=== PATIENT | female | born 1950 | race Hispanic/Latino ===

== ENCOUNTER 2016-10-13 12:38 | Outpatient (RCR) | payer MEDICAID, MEDICARE, OTHER ==
[2016-10-13 13:28] LABS: BASOPHILS % (AUTO) 1 % (0-10); EOSINOPHILS # (AUTO) 0.2 10^3/uL (0.0-0.3); EOSINOPHILS % (AUTO) 3 % (0-10); LYMPHOCYTES # (AUTO) 2.6 X 10^3 (1.0-4.0); LYMPHOCYTES % (AUTO) 42 % (12-44); MEAN CORPUSCULAR HEMOGLOBIN 32 PG (25-34); MEAN CORPUSCULAR HGB CONC 35 G/DL (32-36); MEAN CORPUSCULAR VOLUME 90 FL (80-99); MEAN PLATELET VOLUME 13.1 FL (7.4-10.4); MONOCYTES # (AUTO) 0.6 X 10^3 (0.0-1.0); MONOCYTES % (AUTO) 9 % (0-12); NEUTROPHILS # (AUTO) 2.9 X 10^3 (1.8-7.8); NEUTROPHILS % (AUTO) 45 % (42-75); PLATELET COUNT 132 10^3/uL (130-400); RED BLOOD COUNT 4.54 10^6/uL (4.35-5.85); RED CELL DISTRIBUTION WIDTH 12.5 % (10.0-14.5); WHITE BLOOD COUNT 6.3 10^3/uL (4.3-11.0)
[2016-10-13 13:47] LABS: ALANINE AMINOTRANSFERASE 26 U/L (0-55); ALBUMIN 4.2 G/DL (3.2-4.5); ANION GAP 9 MMOL/L (5-14); ASPARTATE AMINO TRANSFERASE 24 U/L (5-34); BILIRUBIN,TOTAL 0.5 MG/DL (0.1-1.0); BLOOD UREA NITROGEN 13 MG/DL (7-18); BUN/CREATININE RATIO 19; CALCIUM 9.1 MG/DL (8.5-10.1); CARBON DIOXIDE 24 MMOL/L (21-32); CHLORIDE 105 MMOL/L (98-107); CREATININE SERUM 0.67 MG/DL (0.60-1.30); GFR ESTIMATED > 60; GLUCOSE 103 MG/DL (70-105); POTASSIUM 4.1 MMOL/L (3.6-5.0); SODIUM 138 MMOL/L (135-145); TOTAL PROTEIN 6.8 G/DL (6.4-8.2)
== END 2017-01-11 | disposition home or self-care (01) ==
LOC: ONC 12:38
PROVIDERS: ATTEND Internal Medicine Hematology & Oncology
DX: Z09 Encounter for follow-up examination after completed treatment for conditions other than malignant neoplasm (principal); Z86.2 Personal history of diseases of the blood and blood-forming organs and certain disorders involving the immune mechanism; E11.9 Type 2 diabetes mellitus without complications; E03.9 Hypothyroidism, unspecified; I10 Essential (primary) hypertension; E78.1 Pure hyperglyceridemia; Z79.84 Long term (current) use of oral hypoglycemic drugs
CPT/HCPCS: 36415; 80053; 85025; 99214

== ENCOUNTER → 2017-01-26 | Outpatient (CLI) | payer MEDICARE, MEDICAID ==
--- NOTE | 2017-01-29 09:15 | Diagnostic Imaging Report ---
Bilateral screening mammogram The current study was also evaluated with a Computer Aided Detection (CAD) system. INDICATION: Screening. No current complaints stated on the questionnaire. COMPARISON: 01/15/15. FINDINGS: The breasts are composed of heterogeneously dense parenchyma which may decrease mammographic sensitivity. Biopsy clip in the outer aspect of the right breast and central posterior aspect of the left breast is seen. Occasional benign-appearing calcifications are noted. Allowing for technique and positional differences, no suspicious change is seen. IMPRESSION: Dense breasts with no definite change. ACR BI-RADS Category 2: Benign findings. Result letter will be mailed to the patient. Note: At least 10% of breast cancer is not imaged by mammography. Dictated by: Dictated on workstation # [id number]
== END ==
LOC: RAD 10:07
PROVIDERS: ATTEND Family Medicine
DX: Z12.31 Encounter for screening mammogram for malignant neoplasm of breast (principal)
CPT/HCPCS: 77067

== ENCOUNTER 2017-05-23 13:11 | Outpatient (RCR) | payer MEDICARE, MEDICAID ==
[2017-05-23 14:09] LABS: BASOPHILS # (AUTO) 0.1 10^3/uL (0.0-0.1); BASOPHILS % (AUTO) 1 % (0-10); EOSINOPHILS # (AUTO) 0.2 10^3/uL (0.0-0.3); EOSINOPHILS % (AUTO) 3 % (0-10); LYMPHOCYTES # (AUTO) 2.8 X 10^3 (1.0-4.0); LYMPHOCYTES % (AUTO) 39 % (12-44); MEAN CORPUSCULAR HEMOGLOBIN 31 PG (25-34); MEAN CORPUSCULAR HGB CONC 35 G/DL (32-36); MEAN CORPUSCULAR VOLUME 90 FL (80-99); MEAN PLATELET VOLUME 12.4 FL (7.4-10.4); MONOCYTES # (AUTO) 0.5 X 10^3 (0.0-1.0); MONOCYTES % (AUTO) 8 % (0-12); NEUTROPHILS # (AUTO) 3.6 X 10^3 (1.8-7.8); NEUTROPHILS % (AUTO) 50 % (42-75); PLATELET COUNT 142 10^3/uL (130-400); RED BLOOD COUNT 4.65 10^6/uL (4.35-5.85); RED CELL DISTRIBUTION WIDTH 13.6 % (10.0-14.5); WHITE BLOOD COUNT 7.2 10^3/uL (4.3-11.0)
[2017-05-23 15:03] LABS: ALANINE AMINOTRANSFERASE 22 U/L (0-55); ALBUMIN 4.3 GM/DL (3.2-4.5); ANION GAP 7 MMOL/L (5-14); ASPARTATE AMINO TRANSFERASE 23 U/L (5-34); BILIRUBIN,TOTAL 0.4 MG/DL (0.1-1.0); BLOOD UREA NITROGEN 9 MG/DL (7-18); BUN/CREATININE RATIO 14; CALCIUM 9.5 MG/DL (8.5-10.1); CARBON DIOXIDE 27 MMOL/L (21-32); CHLORIDE 107 MMOL/L (98-107); CREATININE SERUM 0.63 MG/DL (0.60-1.30); GFR ESTIMATED > 60; GLUCOSE 115 MG/DL (70-105); POTASSIUM 4.1 MMOL/L (3.6-5.0); SODIUM 141 MMOL/L (135-145); TOTAL PROTEIN 7.1 GM/DL (6.4-8.2)
[2017-06-26] MEDS ORDERED: SIMV20TA3 PO (09:15)
[2017-06-26] MEDS ORDERED: ASPI-999 PO (09:15)
[2017-06-26] MEDS ORDERED: LISI-556 PO (09:15)
[2017-06-26] MEDS ORDERED: METF500T4 PO (09:15)
[2017-06-26] MEDS ORDERED: LEVO112T55 PO (09:15)
== END 2017-07-07 | disposition home or self-care (01) ==
LOC: ONC 13:11
PROVIDERS: ATTEND Internal Medicine Hematology & Oncology
DX: Z09 Encounter for follow-up examination after completed treatment for conditions other than malignant neoplasm (principal); Z86.2 Personal history of diseases of the blood and blood-forming organs and certain disorders involving the immune mechanism; E11.9 Type 2 diabetes mellitus without complications; E03.9 Hypothyroidism, unspecified; I10 Essential (primary) hypertension; E78.1 Pure hyperglyceridemia; Z79.84 Long term (current) use of oral hypoglycemic drugs
CPT/HCPCS: 36415; 80053; 85025; 99213

== ENCOUNTER → 2017-05-30 | Outpatient (CLI) | payer MEDICARE, MEDICAID ==
[~2017-05-30] MED LIST: ASPI-999 PO; LEVO112T55 PO; LISI-556 PO; METF500T4 PO; SIMV20TA3 PO
--- NOTE | 2017-05-30 15:49 | Diagnostic Imaging Report ---
EXAMINATION: Right upper extremity nonvascular ultrasound. INDICATION: Axillary lymphadenopathy. FINDINGS: There are no previous ultrasound examinations available for comparison. The mammogram performed on 01/26/2017 failed to show any sign of malignancy or of an axillary mass. On this study, there is a prominent predominantly hyperechoic soft tissue density in the right axilla. This measures 4.2 x 1.4 x 1.7 cm. This may represent a lymph node which has been nearly completely replaced by fat. This does not have the appearance of a malignant process. Even so, if this soft tissue density is palpable, then biopsy should be considered. If there is no intervention at this time, then a short-term (three-month) follow-up ultrasound exam should be obtained. No other abnormality is identified. IMPRESSION: 1. There is a 4.2 x 1.4 x 1.7 cm predominantly hyperechoic soft tissue density in the right axilla. Considerations and recommendations as above. 2. These results were discussed with Dr. Celine Cagle. ACR BI-RADS Category 3: Probably benign findings. Dictated by: Dictated on workstation # [id number]
== END ==
LOC: CARD 12:25
PROVIDERS: ATTEND Family Medicine
DX: R01.1 Cardiac murmur, unspecified (principal)
CPT/HCPCS: 76881; 93306

== ENCOUNTER → 2017-06-22 | Outpatient (CLI) | payer MEDICARE, MEDICAID | LOC: PREOP 06:23 | PROVIDERS: ATTEND Surgery | DX: Z01.818 Encounter for other preprocedural examination (principal); R63.4 Abnormal weight loss ==

== ENCOUNTER 2017-06-26 08:11 | Day surgery (SDC) | payer MEDICARE, MEDICAID ==
[~2017-06-26] VITALS: Ht 152.4 cm; Wt 70.8 kg
--- OUTSIDE RECORDS SUMMARY | 2017-06-26 08:14 | XMS REPORT ---
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 Active 05169805 Problem Other hammer toe(s) (acquired), right foot M20.41 Active 576624095 Problem Other hammer toe(s) (acquired), left foot M20.42 Active 55300255 Problem Thrombocytopenia D69.6 Active 643523606 Problem Hypothyroidism E03.9 Active 17540255 Problem Hypertriglyceridemia E78.1 Active 405647610 Problem Type 2 diabetes mellitus with diabetic polyneuropathy E11.42 Active 358492487 ALLERGIES Unknown Allergies SOCIAL HISTORY No smoking Hx information available PLAN OF CARE VITAL SIGNS MEDICATIONS Medication Instructions Dosage Frequency Start Date End Date Duration Status MetFORMIN HCl ER 500MG Orally 2 times a day 2 tablet with evening meal 12h Active Levothyroxine Sodium 112 MCG Orally Once a day 1 tablet 24h Active Lisinopril 5MG Orally Once a day 1 tablet 24h Active Simvastatin 20MG Orally Once a day 1 tablet in the evening 24h Active RESULTS No Results PROCEDURES No Known procedures IMMUNIZATIONS No Known Immunizations
--- OUTSIDE RECORDS SUMMARY | 2017-06-26 08:14 | XMS REPORT ---
Author Author DARLIN LOPES [facility] eClinicalWorks Address Unknown Phone Unavailable Care Team Providers Care Faa Certified Powerplant Mechanic Name Role Phone DARLIN LOPES Unavailable Allergies No Known Allergies Problems Problem Type Condition ICD-9 Code Onset Dates Condition Status Problem Hypothyroidism 244.9 Active Problem Polyneuropathy in diabetes 357.2 Active Problem Venous stasis dermatitis of both lower extremities 454.1 Active Problem Unspecified thrombocytopenia 287.5 Active Problem Diabetes mellitus without mention of complication, type II or unspecified type, not stated as uncontrolled 250.00 Active Medications No Known Medications Results No Known Results Summary Purpose eClinicalWorks Submission
--- OUTSIDE RECORDS SUMMARY | 2017-06-26 08:14 | XMS REPORT ---
Author Author DARLIN LOPES Organization [facility] Address [address] [place] [address] Care Team Providers Care Sod Farmer Name Role Phone DARLIN LOPES Unavailable PROBLEMS Type Condition ICD9-CM Code FGL16-FX Code Onset Dates Condition Status SNOMED Code Problem Hypertriglyceridemia E78.1 Active 013696313 Problem Other hammer toe(s) (acquired), right foot M20.41 Active 277219297 Problem Other hammer toe(s) (acquired), left foot M20.42 Active 02222801 Problem Pulmonary hypertension I27.2 Active 22868656 Problem Appetite loss R63.0 Active 30349646 Problem Memory problem R41.3 Active 186243584 Problem Hallux valgus, acquired M20.10 Active 89766145 Problem Decreased sense of smell R43.8 Active 05268358 Problem 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 3134469 Problem Low-tension glaucoma of both eyes, 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 Active 59196857 Problem Venous stasis dermatitis I83.10 Active 86839759 Problem Thrombocytopenia D69.6 Active 269003707 Problem Type 2 diabetes mellitus with diabetic polyneuropathy E11.42 Active 901431316 Problem Hypothyroidism E03.9 Active 41240040 ALLERGIES Unknown Allergies SOCIAL HISTORY No smoking Hx information available PLAN OF CARE VITAL SIGNS MEDICATIONS Unknown Medications RESULTS Name Result Date Reference Range TSH 2016-10-25 TSH 1.970 0.450-4.500 PROCEDURES Procedure Date Ordered Related Diagnosis Body Site LAB NOT BILLED BY [facility] Oct 25, 2016 SANDY ALMONTE* Oct 25, 2016 IMMUNIZATIONS No Known Immunizations
--- OUTSIDE RECORDS SUMMARY | 2017-06-26 08:14 | XMS REPORT ---
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 Active 65388257 Problem Other hammer toe(s) (acquired), right foot M20.41 Active 287885749 Problem Other hammer toe(s) (acquired), left foot M20.42 Active 56089809 Problem Thrombocytopenia D69.6 Active 405731051 Problem Hypothyroidism E03.9 Active 69351904 Problem Hypertriglyceridemia E78.1 Active 269547612 Problem Type 2 diabetes mellitus with diabetic polyneuropathy E11.42 Active 639550057 ALLERGIES Unknown Allergies SOCIAL HISTORY No smoking Hx information available PLAN OF CARE VITAL SIGNS MEDICATIONS Unknown Medications RESULTS No Results PROCEDURES No Known procedures IMMUNIZATIONS No Known Immunizations
--- OUTSIDE RECORDS SUMMARY | 2017-06-26 08:14 | XMS REPORT ---
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 Active 41357449 Problem Other hammer toe(s) (acquired), right foot M20.41 Active 051809423 Problem Other hammer toe(s) (acquired), left foot M20.42 Active 37292580 Problem Thrombocytopenia D69.6 Active 881410302 Problem Hypothyroidism E03.9 Active 76451290 Problem Hypertriglyceridemia E78.1 Active 687235750 Problem Type 2 diabetes mellitus with diabetic polyneuropathy E11.42 Active 005884913 ALLERGIES Unknown Allergies SOCIAL HISTORY No smoking Hx information available PLAN OF CARE VITAL SIGNS MEDICATIONS Unknown Medications RESULTS No Results PROCEDURES No Known procedures IMMUNIZATIONS No Known Immunizations
--- OUTSIDE RECORDS SUMMARY | 2017-06-26 08:14 | XMS REPORT ---
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
--- OUTSIDE RECORDS SUMMARY | 2017-06-26 08:14 | XMS REPORT ---
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 Active 96589520 Problem Venous stasis dermatitis I83.10 Active 03198531 Problem Hypothyroidism E03.9 Active 00929584 Problem Thrombocytopenia D69.6 Active 442149543 Problem Appetite loss R63.0 Active 10468584 Problem Decreased sense of smell R43.8 Active 06915567 Problem Hallux valgus, acquired M20.10 Active 75309808 Problem Other hammer toe(s) (acquired), right foot M20.41 Active 531469340 Problem 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
--- OUTSIDE RECORDS SUMMARY | 2017-06-26 08:14 | XMS REPORT ---
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 Active 44366570 Problem Other hammer toe(s) (acquired), right foot M20.41 Active 793309678 Problem Other hammer toe(s) (acquired), left foot M20.42 Active 32387260 Problem Thrombocytopenia D69.6 Active 787857265 Problem Hypothyroidism E03.9 Active 97776790 Problem Hypertriglyceridemia E78.1 Active 583468354 Problem Type 2 diabetes mellitus with diabetic polyneuropathy E11.42 Active 581233338 ALLERGIES Unknown Allergies SOCIAL HISTORY No smoking Hx information available PLAN OF CARE VITAL SIGNS MEDICATIONS Unknown Medications RESULTS No Results PROCEDURES No Known procedures IMMUNIZATIONS No Known Immunizations
--- OUTSIDE RECORDS SUMMARY | 2017-06-26 08:15 | XMS REPORT ---
Author Author DARLIN LOPES [facility] eClinicalWorks Address Unknown Phone Unavailable Care Team Providers Care Correctional Supervisor Lieutenant Name Role Phone DARLIN LOPES Unavailable Allergies No Known Allergies Problems Problem Type Condition Code Onset Dates Condition Status Problem Thrombocytopenia D69.6 Active Problem Hypothyroidism E03.9 Active Problem Type 2 diabetes mellitus with diabetic polyneuropathy E11.42 Active Problem Venous stasis dermatitis I83.10 Active Assessment Type 2 diabetes mellitus with diabetic polyneuropathy E11.42 Active Medications No Known Medications Results No Known Results Summary Purpose eClinicalWorks Submission
--- OUTSIDE RECORDS SUMMARY | 2017-06-26 08:15 | XMS REPORT ---
Author Author DARLIN LOPES [facility] eClinicalWorks Address Unknown Phone Unavailable Care Team Providers Care Farmworker Fruit Name Role Phone DARLIN LOPES Unavailable Allergies No Known Allergies Problems Problem Type Condition Code Onset Dates Condition Status Problem Thrombocytopenia D69.6 Active Problem Hypothyroidism E03.9 Active Problem Type 2 diabetes mellitus with diabetic polyneuropathy E11.42 Active Problem Venous stasis dermatitis I83.10 Active Assessment Hypothyroidism E03.9 Active Medications Medication Code System Code Instructions Start Date End Date Status Dosage Levothyroxine Sodium [facility] [address]-13 125 MCG Orally Once a day January 21, 2016 1 tablet Results No Known Results Summary Purpose eClinicalWorks Submission
--- OUTSIDE RECORDS SUMMARY | 2017-06-26 08:15 | XMS REPORT ---
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
--- OUTSIDE RECORDS SUMMARY | 2017-06-26 08:15 | XMS REPORT ---
Author Author NANCY MONTERROSO Organization [employer] Address Unknown Phone Unavailable Care Team Providers Care Archaeologist Name Role Phone NANCY MONTERROSO CP Unavailable Allergies No Known Allergies Problems Problem Type Condition Code Onset Dates Condition Status Problem Thrombocytopenia D69.6 Active Problem Hypothyroidism E03.9 Active Problem Type 2 diabetes mellitus with diabetic polyneuropathy E11.42 Active Assessment Hallux valgus, acquired M20.10 Active Assessment DM neuro manif type II E11.40 Active Problem Venous stasis dermatitis I83.10 Active Assessment Onychomycosis B35.1 Active Medications No Known Medications Procedures Procedure Coding System Code Date [facility] VISIT ESTABLISHED PATIENT CPT-4 G0467 Nov 19, 2015 Office Visit, Est Pt., Level 3 CPT-4 90934 Nov 19, 2015 DEBRIDE NAIL, 1-5 CPT-4 87120 Nov 19, 2015 Vital Signs Date/Time: Nov 19, 2015 Blood Pressure Diastolic 79 mmHg Blood Pressure Systolic 124 mmHg Height 61 in Results Name Result Date Reference Range Unit Abnormality Flag DEBRIDE NAIL 1-5 Summary Purpose eClinicalWorks Submission
--- OUTSIDE RECORDS SUMMARY | 2017-06-26 08:15 | XMS REPORT ---
Author Author NANCY MONTERROSO [facility] eClinicalWorks Address Unknown Phone Unavailable Care Team Providers Care Private Equity Analyst Name Role Phone NANCY MONTERROSO Unavailable Allergies No Known Allergies Problems Problem Type Condition Code Onset Dates Condition Status Assessment Hallux valgus, acquired M20.10 Active Assessment DM neuro manif type II E11.40 Active Problem Venous stasis dermatitis of both lower extremities 454.1 Active Problem Hypothyroidism 244.9 Active Problem DM neuro manif type II E11.40 Active Problem Diabetes mellitus without mention of complication, type II or unspecified type, not stated as uncontrolled 250.00 Active Assessment Onychomycosis B35.1 Active Problem Polyneuropathy in diabetes 357.2 Active Problem Unspecified thrombocytopenia 287.5 Active Medications No Known Medications Procedures Procedure Coding System Code Date Office Visit, Est Pt., Level 3 CPT-4 06494 Aug 13, 2015 DEBRIDE NAIL, 1-5 CPT-4 18421 Aug 13, 2015 Vital Signs Date/Time: Aug 13, 2015 Blood Pressure Diastolic 82 mmHg Blood Pressure Systolic 120 mmHg Height 61 in Results Name Result Date Reference Range Unit Abnormality Flag DEBRIDE NAIL 1-5 Summary Purpose eClinicalWorks Submission
--- OUTSIDE RECORDS SUMMARY | 2017-06-26 08:15 | XMS REPORT ---
Author Author DARLIN LOPES [facility] eClinicalWorks Address Unknown Phone Unavailable Care Team Providers Care City Councilman Name Role Phone DARLIN LOPES Unavailable Allergies No Known Allergies Problems Problem Type Condition Code Onset Dates Condition Status Assessment Thrombocytopenia D69.6 Active Assessment Blurry vision H53.8 Active Problem Thrombocytopenia D69.6 Active Problem Hypothyroidism E03.9 Active Problem Type 2 diabetes mellitus with diabetic polyneuropathy E11.42 Active Assessment Plantar fasciitis M72.2 Active Assessment Hypothyroidism E03.9 Active Problem Venous stasis dermatitis I83.10 Active Assessment Type 2 diabetes mellitus with diabetic polyneuropathy E11.42 Active Medications No Known Medications Procedures Procedure Coding System Code Date VENIPCLAUDIA, ROUTINE* CPT-4 43655 January 20, 2016 LAB NOT BILLED BY [facility] CPT-4 NOBLL January 20, 2016 Results Name Result Date Reference Range Unit Abnormality Flag CBC ----Lymphs 39 55315099 % ----Neutrophils 50 58415081 % ----Baso (Absolute) 0.0 98544934 0.0-0.2 x10E3/uL ----Hemoglobin 14.6 25067218 11.1-15.9 g/dL ----Eos (Absolute) 0.1 01418179 0.0-0.4 x10E3/uL ----Hematocrit 43.7 96978993 34.0-46.6 % ----Monocytes(Absolute) 0.5 03469261 0.1-0.9 x10E3/uL ----MCV 92 10026717 79-97 fL ----Lymphs (Absolute) 2.6 06497788 0.7-3.1 x10E3/uL ----MCH 30.7 55985229 26.6-33.0 pg ----Neutrophils (Absolute) 3.3 71895711 1.4-7.0 x10E3/uL ----MCHC 33.4 13755405 31.5-35.7 g/dL ----Immature Granulocytes 0 96943525 % ----Basos 1 50251803 % ----RDW 13.4 56280393 12.3-15.4 % ----Immature Grans (Abs) 0.0 37697927 0.0-0.1 x10E3/uL ----WBC 6.6 00938163 3.4-10.8 x10E3/uL ----Platelets 158 86779520 150-379 x10E3/uL ----Eos 2 29846682 % ----RBC 4.75 92228018 3.77-5.28 x10E6/uL ----Monocytes 8 41671830 % LIPID PANEL ----LDL Cholesterol Calc 59 76230232 0-99 mg/dL ----VLDL Cholesterol Ari 69 44184465 5-40 mg/dL H ----Cholesterol, Total 163 73492884 100-199 mg/dL ----HDL Cholesterol 35 93135673 >39 mg/dL L ----Triglycerides 345 85745000 0-149 mg/dL H ROUTINE VENIPUNCTURE TSH ----TSH 8.760 60748650 0.450-4.500 uIU/mL H CMP ----Potassium, Serum 4.4 05634134 3.5-5.2 mmol/L ----Sodium, Serum 138 76275181 134-144 mmol/L ----BUN/Creatinine Ratio 20 89384188 11-26 ----eGFR If Africn Am 107 91030526 >59 mL/min/1.73 ----eGFR If NonAfricn Am 93 78829253 >59 mL/min/1.73 ----Creatinine, Serum 0.65 91446372 0.57-1.00 mg/dL ----BUN 13 47725840 8-27 mg/dL ----Glucose, Serum 121 43252329 65-99 mg/dL H ----AST (SGOT) 19 63875079 0-40 IU/L ----Globulin, Total 2.5 38184787 1.5-4.5 g/dL ----ALT (SGPT) 23 85470595 0-32 IU/L ----A/G Ratio 1.7 20160120 1.1-2.5 ----Bilirubin, Total 0.3 20160120 0.0-1.2 mg/dL ----Alkaline Phosphatase, S 96 20160120 39-117 IU/L ----Carbon Dioxide, Total 23 20160120 18-29 mmol/L ----Calcium, Serum 9.3 20160120 8.7-10.3 mg/dL ----Protein, Total, Serum 6.8 20160120 6.0-8.5 g/dL ----Albumin, Serum 4.3 20160120 3.6-4.8 g/dL ----Chloride, Serum 100 20160120 97-108 mmol/L Summary Purpose eClinicalWorks Submission
--- OUTSIDE RECORDS SUMMARY | 2017-06-26 08:15 | XMS REPORT ---
Author Author DARLIN LOPES eClinicalWorks Address Unknown Phone Unavailable Care Team Providers Care Bridge Tender Name Role Phone DARLIN LOPES CP Unavailable Allergies, Adverse Reactions, Alerts Substance Reaction Event Type N.K.D.A. Info Not Available Non Drug Allergy Problems Problem Type Condition Code Onset Dates Condition Status Problem Thrombocytopenia D69.6 Active Problem Hypothyroidism E03.9 Active Problem Type 2 diabetes mellitus with diabetic polyneuropathy E11.42 Active Assessment Verruca vulgaris B07.9 Active Problem Venous stasis dermatitis I83.10 Active Assessment Type 2 diabetes mellitus with diabetic polyneuropathy E11.42 Active Medications Medication Code System Code Instructions Start Date End Date Status Dosage MetFORMIN HCl ER [facility] [address]-30 500 MG Orally 2 times a day February 19, 2015 2 tablet with evening meal Levothyroxine Sodium [facility] 90438777608 112MCG Orally Once a day 1 tablet Lisinopril [facility] 92517702945 5MG Orally Once a day 1 tablet Simvastatin [facility] 47332070378 20MG Orally Once a day 1 tablet in the evening Procedures Procedure Coding System Code Date [facility] VISIT ESTABLISHED PATIENT CPT-4 G0467 Sep 24, 2015 Office Visit, Est Pt., Level 3 CPT-4 60727 Sep 24, 2015 GLYCATED HEMOGLOBIN TEST CPT-4 79212 Sep 24, 2015 Vital Signs Date/Time: Sep 24, 2015 Temperature 97.4 F Weight 166.6 lbs Height 61 in BMI 31.48 Index Blood Pressure Diastolic 74 mmHg Blood Pressure Systolic 118 mmHg Cardiac Monitoring Heart Rate 76 bpm Results Name Result Date Reference Range Unit Abnormality Flag A1C (IN HOUSE) ----A1C IN HOUSE 5.9 20150924 4.30 - 5.6 % ----Previous A1c 5.8 20150924 ----Lot # [id number] ----Exp date [id number] Summary Purpose eClinicalWorks Submission
--- OUTSIDE RECORDS SUMMARY | 2017-06-26 08:15 | XMS REPORT ---
Author Author DARLIN LOPES Organization [facility] Address [address] [place] [address] Care Team Providers Care Head Of Research & Insights Name Role Phone DARLIN LOPES Unavailable PROBLEMS Type Condition ICD9-CM Code NUN25-TM Code Onset Dates Condition Status SNOMED Code Problem Hypertriglyceridemia E78.1 Active 803331232 Problem Other hammer toe(s) (acquired), right foot M20.41 Active 934169538 Problem Other hammer toe(s) (acquired), left foot M20.42 Active 63452749 Problem Pulmonary hypertension I27.2 Active 16942062 Problem Appetite loss R63.0 Active 88550202 Problem Memory problem R41.3 Active 662912600 Problem Hallux valgus, acquired M20.10 Active 52315822 Problem Decreased sense of smell R43.8 Active 15159331 Problem 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 0988155 Problem Low-tension glaucoma of both eyes, 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 Active 32632926 Problem Venous stasis dermatitis I83.10 Active 46527378 Problem Thrombocytopenia D69.6 Active 172932236 Problem Type 2 diabetes mellitus with diabetic polyneuropathy E11.42 Active 471587584 Problem Hypothyroidism E03.9 Active 18847626 ALLERGIES Unknown Allergies SOCIAL HISTORY No smoking Hx information available PLAN OF CARE VITAL SIGNS MEDICATIONS Medication Instructions Dosage Frequency Start Date End Date Duration Status MetFORMIN HCl ER 500MG Orally 2 times a day 2 tablet with evening meal 12h Active RESULTS No Results PROCEDURES No Known procedures IMMUNIZATIONS No Known Immunizations
[2017-06-26 08:20] VITALS: BP 133/75
[2017-06-26] MEDS ORDERED: LACTATED RINGERS 1,000 ML IV ONE (08:52)
[2017-06-26] MEDS ORDERED: MIDAZOLAM 2 MG/2 ML (VERSED) VIAL ONE (09:09)
[2017-06-26] MEDS ORDERED: proPOfol 200 MG/20 ML (DIPRIVAN) VIAL IV ONE (09:09)
[2017-06-26] MEDS ORDERED: LISI-556 PO (09:15)
[2017-06-26] MEDS ORDERED: METF500T4 PO (09:15)
[2017-06-26] MEDS ORDERED: SIMV20TA3 PO (09:15)
[2017-06-26] MEDS ORDERED: LACTATED RINGERS 1,000 ML IV SCH (09:15)
[2017-06-26] MEDS ORDERED: ASPI-999 PO (09:15)
[2017-06-26] MEDS ORDERED: LEVO112T55 PO (09:15)
--- NOTE | 2017-06-26 09:38 | Progress Note-Pre Operative ---
Pre-Operative Progress Note H&P Reviewed The H&P was reviewed, patient examined and no changes noted. Date Seen by Provider: Jun 26, 2017 Time Seen by Provider: 09:38 Date H&P Reviewed: Jun 26, 2017 Time H&P Reviewed: 09:38 Pre-Operative Diagnosis: weight loss, constipation ADIS GRESHAM DO Jun 26, 2017 09:38
--- NOTE | 2017-06-26 10:27 | Progress Note-Post Operative ---
Post-Operative Progess Note Surgeon (s)/Kettle Girl (s) Surgeon ADIS GRESHAM DO Kettle Girl: na Pre-Operative Diagnosis weight loss, constipation Post-Operative Diagnosis normal egd, diverticulosis, sigmoid colon polyp Procedure & Operative Findings Date of Procedure 06/26/17 Procedure Performed/Findings egd and colonoscopy with hot bx polypectomy Anesthesia Type per [facility] Estimated Blood Loss Estimated blood loss (mL): none Specimens/Packing Specimens Removed sigmoid colon polyp ADIS GRESHAM DO Jun 26, 2017 10:27
--- NOTE | 2017-06-26 10:28 | Discharge Inst-Simple/Standard ---
Discharge Inst-Standard Patient Instructions/Follow Up Plan of Care/Instructions/FU: 2 weeks Andrew Activity as Tolerated: Yes Discharge Diet: Regular Diet ADIS GRESHAM DO Jun 26, 2017 10:28
[2017-06-26 10:45] VITALS: BP 140/80
[2017-06-26 11:20] VITALS: BP 137/85
[2017-06-26 11:24] VITALS: BP 137/85
--- NOTE | 2017-06-27 03:58 | OPERATIVE REPORT ---
DATE OF SERVICE: 06/26/2017 PREOPERATIVE DIAGNOSES: Weight loss and constipation. POSTOPERATIVE DIAGNOSES: 1. Normal esophagogastroduodenoscopy. 2. Diverticulosis. 3. Sigmoid colon polyp. PROCEDURE: 1. Esophagogastroduodenoscopy. 2. Colonoscopy with hot biopsy polypectomy. SURGEON: Adis Morales DO ANESTHESIA: [facility], Anesthesiology. ESTIMATED BLOOD LOSS: None. COMPLICATIONS: None. INDICATION: The patient is a 66-year-old female with weight loss and constipation. She understands the risks and benefits of the procedure and wished to proceed with the procedure. Consent was signed and placed in the chart. PROCEDURE: The patient was taken to the endoscopy suite, was placed in the left lower recumbent position. Timeout was performed. The scope was inserted in the mouth, down the esophagus, stomach into the duodenum. There were no polyps, masses or ulcerations within the duodenum. The scope was slowly directed back to the stomach where it was further insufflated noting no abnormalities of the stomach. There were no polyps, masses, ulcerations or erythematous changes. The scope was retroflexed noting no other pathology. The scope was returned to its normal position and slowly withdrawn back into the distal esophagus which had normal appearance. The scope was slowly withdrawn until completely removed noting no other pathology. A digital rectal exam was performed, there were no palpable polyps, masses or ulcerations. The scope was inserted in the rectum and passed all the way to the cecum with minimal difficulty. Prep was adequate. The scope was then slowly retracted back. There were no polyps, masses or ulcerations in the cecum, ascending, transverse and descending colon. Within the sigmoid colon, I started seeing a moderate amount of diverticulosis present. There was also a small polyp on which a hot biopsy polypectomy was performed. The scope was continued to be slowly retracted back noting no other pathology. Once in the rectum, the scope was also retroflexed, noting no other pathology. The scope was returned to its normal position, slowly withdrawn until completely removed. The patient tolerated the procedure well without any complications. She was taken to the recovery room in stable condition. RECOMMENDATIONS: The patient will followup on pathology in 2 weeks and discuss pathology results. She will need a repeat colonoscopy in 5 years. If she has any problems prior to that, she should be reevaluated at that time. The patient also recommended a high fiber diet. Job ID: [id number] DocumentID: [id number] Dictated Date: 06/26/2017 11:08:31 Vehicle Dismantler Date: 06/27/2017 03:57:58 Dictated By: ADIS MORALES DO
== END 2017-06-26 11:25 | disposition home or self-care (01) ==
LOC: ENDO 08:11
PROVIDERS: ATTEND Surgery
DX: K57.30 Diverticulosis of large intestine without perforation or abscess without bleeding; D12.5 Benign neoplasm of sigmoid colon; D69.6 Thrombocytopenia, unspecified; G62.9 Polyneuropathy, unspecified; K21.9 Gastro-esophageal reflux disease without esophagitis; Z79.84 Long term (current) use of oral hypoglycemic drugs; R63.4 Abnormal weight loss; E03.9 Hypothyroidism, unspecified; E11.9 Type 2 diabetes mellitus without complications; M19.91 Primary osteoarthritis, unspecified site; Z79.899 Other long term (current) drug therapy; K59.09 Other constipation
CPT/HCPCS: 82962; 88305